=== PATIENT | male | born 1995 | race Two or more races ===

== ENCOUNTER 2025-03-21 20:53 | Inpatient (IN) | payer OTHER ==
[~2025-03-21] VITALS: Ht 175.3 cm; Wt 78.9 kg
[2025-03-22] MEDS ORDERED: MAG HYDROX/AL HYDROX/SIMETH 30 ML UDC PO PRN (01:00)
[2025-03-22] MEDS ORDERED: DOSING PER PHARMACY-VANCOMYCIN IV XX PRN (01:00)
[2025-03-22] MEDS ORDERED: ALBUTEROL FS 2.5 MG/3 ML VIAL.NEB NEB PRN (01:00)
[2025-03-22] MEDS ORDERED: IPRATROPIUM NEB FS 0.5 MG/2.5 ML AMPUL.NEB NEB PRN (01:00)
[2025-03-22] MEDS ORDERED: Z GUARD REMEDY 4 OZ OINT TP PRN (01:00)
[2025-03-22] MEDS ORDERED: ONDANSETRON HCL/PF 4 MG/2 ML VIAL IVP PRN (01:00)
[2025-03-22] MEDS ORDERED: HYDROCODONE/APAP 5/325MG TABLET GT PRN (01:30)
[2025-03-22] MEDS: POLYVINYL ALCOHOL 15 ML BOTTLE EACHEYE SCH (01:30)
[2025-03-22] MEDS ORDERED: ACETAMINOPHEN ES 500 MG TABLET GT PRN (01:30)
[2025-03-22 06:00] VITALS: BP 123/90; TEMP 92.9; O2SAT 98
[2025-03-22] MEDS ORDERED: VANCOMYCIN 1 GM /D5W 250 ML PB IV ONE (06:26)
[2025-03-22] MEDS ORDERED: MEROPENEM 500MG/NS 50 ML PB IV ONE (06:26)
[2025-03-22] MEDS: IV D5/ 0.9% NACL 1,000 ML IV PRN (06:33)
[2025-03-22] MEDS: MEROPENEM 500 MG in IV NS 0.9% 50 ML IV ONE (06:38)
[2025-03-22] MEDS: VANCOMYCIN 1.5 GM in IV D5W 500 ML IV ONE (06:55)
[2025-03-22] MEDS ORDERED: MAG HYDROX/AL HYDROX/SIMETH 30 ML UDC GT PRN (07:00)
[2025-03-22 08:00] VITALS: BP 123/90; TEMP 97.5; O2SAT 98
[2025-03-22] MEDS ORDERED: POLY17PO4 GT (08:33)
[2025-03-22] MEDS ORDERED: ENOX30DI5 SQ (08:33)
[2025-03-22] MEDS ORDERED: POTA20PA40 GT (08:33)
[2025-03-22] MEDS ORDERED: AMIN30LI66 GT (08:33)
[2025-03-22] MEDS ORDERED: CLON0.2T GT (08:33)
[2025-03-22] MEDS ORDERED: POLY15DR40 EACHEYE (08:33)
[2025-03-22] MEDS ORDERED: MIDO10TA GT (08:33)
[2025-03-22] MEDS ORDERED: BISA10SU11 RC (08:33)
[2025-03-22] MEDS ORDERED: CRAN300T GT (08:33)
[2025-03-22] MEDS ORDERED: ASCO500T10 GT (08:33)
[2025-03-22] MEDS ORDERED: MULT-213 GT (08:33)
[2025-03-22] MEDS ORDERED: LOSA25TA27 GT (08:33)
[2025-03-22] MEDS ORDERED: FAMO40OR5 GT (08:33)
[2025-03-22] MEDS ORDERED: FERR220E2 GT (08:33)
[2025-03-22] MEDS ORDERED: ACET-2070 GT (08:33)
[2025-03-22] MEDS ORDERED: MAGN400O6 GT (08:33)
[2025-03-22] MEDS ORDERED: FLUD0.1T GT (08:33)
[2025-03-22] MEDS ORDERED: ONDA-97 GT (08:33)
[2025-03-22] MEDS ORDERED: HYDR-4209 PO (08:33)
[2025-03-22] MEDS ORDERED: IPRA3AMP23 IH ×2 (08:33)
[2025-03-22] MEDS: PANTOPRAZOLE 40 MG VIAL IV SCH (09:14)
[2025-03-22] MEDS ORDERED: Medication Not On Formulary EA (Acetaminophen 20 ML) GT PRN (09:30)
[2025-03-22] MEDS ORDERED: Medication Not On Formulary EA (Ipratropium/Albuterol Sulfate (Duoneb 2.5-0.5 Mg/3 Ml So IH PRN (09:30)
[2025-03-22 09:38] LABS: RED BLOOD CELL COUNT(AUTO) 2.81 MIL/uL (4.5-6.0); RED CELL DISTRIBUTION WIDTH 20.3 % (11.5-15.0); WHITE BLOOD COUNT (AUTO) 3.5 K/uL (4.3-11.0)
[2025-03-22 09:54] LABS: PLATELET COUNT (AUTO) 112 K/uL (150-450)
[2025-03-22] MEDS ORDERED: MIDODRINE HCL (5MG) 5 MG TABLET GT PRN (10:00)
[2025-03-22 10:09] LABS: ASPARTATE AMINOTRANSFERASE 63.0 U/L (15-37); CALCIUM, SERUM 9.1 mg/dL (8.5-10.1); CREATININE 0.7 mg/dL (0.6-1.3); SODIUM SERUM 146.0 mmol/L (136-145); TOTAL PROTEIN, SERUM 8.2 g/dL (6.4-8.2); UREA NITROGEN, BLOOD 14.0 mg/dL (7-18)
[2025-03-22 10:25] VITALS: BP 105/76; O2SAT 98
[2025-03-22 12:00] VITALS: BP 108/70; TEMP 98.2; O2SAT 98
[2025-03-22] MEDS: MEROPENEM 500 MG in IV NS 0.9% 50 ML IV SCH (13:11)
[2025-03-22] MEDS: FLUDROCORTISONE 0.1 MG TABLET GT SCH (13:13)
[2025-03-22] MEDS: IPRATROPIUM NEB FS 0.5 MG/2.5 ML AMPUL.NEB NEB SCH (14:10)
[2025-03-22] MEDS: ALBUTEROL FS 2.5 MG/3 ML VIAL.NEB NEB SCH (14:10)
[2025-03-22] MEDS: VANCOMYCIN HCL 1.25 GM in IV D5W 250 ML IV SCH (15:14)
[2025-03-22 16:00] VITALS: BP 106/70; TEMP 98.7; O2SAT 96
[2025-03-22 16:06] LABS: APPEARANCE,URINE CLEAR (CLEAR); BLOOD, URINE TRACE-INTA Ery/uL (NEGATIVE); LEUKOCYTE ESTERASE ,URINE NEGATIVE (NEGATIVE); NITRITE, URINE NEGATIVE (NEGATIVE); UGLUCOSE NEGATIVE (NEGATIVE)
[2025-03-22 16:23] LABS: ADD URINE CULTURE YES; SQUAMOUS EPITHELIAL CELL,UR Few /HPF (None Seen)
[2025-03-22] MEDS: FAMOTIDINE (20 MG) 20 MG TABLET GT SCH (17:13)
[2025-03-22] MEDS: FERROUS SULFATE UDC 300 MG/5 ML UDC GT SCH (17:13)
[2025-03-22] MEDS: JEVITY 1.2 CAL 1,000 ML BOTTLE GT PRN (17:22)
[2025-03-22 20:00] VITALS: BP 109/74; TEMP 97.8; O2SAT 98
[2025-03-23] VITALS: BP 104/77; TEMP 97.3; O2SAT 97
[2025-03-23 04:00] VITALS: BP 110/73; TEMP 98.3; O2SAT 97
[2025-03-23 07:52] LABS: LDL 45.0 mg/dL (0-99)
[2025-03-23 08:00] VITALS: BP 101/71; TEMP 98.3; O2SAT 97
[2025-03-23 08:00] LABS: CALCIUM, SERUM 9.0 mg/dL (8.5-10.1); CREATININE 0.8 mg/dL (0.6-1.3); NT-PRO BNP 832.0 pg/mL (0-125); PHOSPHORUS 4.5 mg/dL (2.5-4.9); SODIUM SERUM 148.0 mmol/L (136-145); UREA NITROGEN, BLOOD 12.0 mg/dL (7-18)
[2025-03-23 08:03] LABS: PLATELET COUNT (AUTO) 135 K/uL (150-450); RED BLOOD CELL COUNT(AUTO) 2.75 MIL/uL (4.5-6.0); RED CELL DISTRIBUTION WIDTH 20.5 % (11.5-15.0); WHITE BLOOD COUNT (AUTO) 3.9 K/uL (4.3-11.0)
[2025-03-23] MEDS: LOSARTAN POTASSIUM 25 MG TABLET GT SCH (08:40)
[2025-03-23] MEDS: ASCORBIC ACID 500 MG TABLET GT SCH (08:40)
[2025-03-23] MEDS: PANTOPRAZOLE 40 MG/PACK PACK NG SCH (08:41)
[2025-03-23 12:00] VITALS: BP 119/80; TEMP 97.9; O2SAT 97
[2025-03-23 13:38] LABS: HIV-1/2 ANTIBODY NON REACTIVE (NONREACTIVE)
[2025-03-23 16:00] VITALS: BP 111/77; TEMP 97.5; O2SAT 97
[2025-03-23 20:00] VITALS: BP 110/89; TEMP 97.6; O2SAT 99
[2025-03-24] VITALS: BP 110/72; TEMP 97.6; O2SAT 97
[2025-03-24 04:00] VITALS: BP 100/67; TEMP 97.8; O2SAT 96
[2025-03-24 07:56] LABS: PLATELET COUNT (AUTO) 132 K/uL (150-450); RED BLOOD CELL COUNT(AUTO) 2.66 MIL/uL (4.5-6.0); RED CELL DISTRIBUTION WIDTH 19.7 % (11.5-15.0); WHITE BLOOD COUNT (AUTO) 6.5 K/uL (4.3-11.0)
[2025-03-24 08:00] VITALS: BP 101/77; TEMP 98.6; O2SAT 100
[2025-03-24 08:12] LABS: CALCIUM, SERUM 8.6 mg/dL (8.5-10.1); CREATININE 0.6 mg/dL (0.6-1.3); PHOSPHORUS 3.1 mg/dL (2.5-4.9); SODIUM SERUM 146.0 mmol/L (136-145); UREA NITROGEN, BLOOD 10.0 mg/dL (7-18)
[2025-03-24 12:00] VITALS: BP 111/80; TEMP 97.4; O2SAT 100
[2025-03-24 16:00] VITALS: BP 111/83; TEMP 98.6; O2SAT 100
[2025-03-24] MEDS ORDERED: VANCOMYCIN 750 MG in IV D5W 250 ML IV SCH (22:00)
== END 2025-03-25 | DRG 139 ==
LOC: TELE-TD 03-22 00:46 → TELE1 03-23 10:34
PROVIDERS: ADMIT Internal Medicine; ATTEND Internal Medicine
PROC: 5A1945Z Respiratory Ventilation, 24-96 Consecutive Hours (ICD-10-PCS; principal; 2025-03-22)
DX: J15.9 Unspecified bacterial pneumonia (principal); Z99.11 Dependence on respirator [ventilator] status; R53.2 Functional quadriplegia; D61.818 Other pancytopenia; J96.10 Chronic respiratory failure, unspecified whether with hypoxia or hypercapnia; Z93.0 Tracheostomy status; D63.8 Anemia in other chronic diseases classified elsewhere; R68.0 Hypothermia, not associated with low environmental temperature; Z93.1 Gastrostomy status; Z87.820 Personal history of traumatic brain injury; Z79.01 Long term (current) use of anticoagulants; Z79.51 Long term (current) use of inhaled steroids; Z79.899 Other long term (current) drug therapy; Z87.828 Personal history of other (healed) physical injury and trauma; Y95 Nosocomial condition; Z98.2 Presence of cerebrospinal fluid drainage device
CPT/HCPCS: 31720; 36415; 71045-TC; 80048-TC; 80053-TC; 80061-TC; 80202-TC; 81001; 83605-TC; 83735-TC; 83880; 84100-TC; 85025-TC; 86803; 87040-TC; 87081-TC; 87086-TC; 87806; 93307-TC; 94002-TC; 94003-TC; 94760-TC; 94762-TC; 94799-TC; A4223; A6213; A7526; G0378; J2185; J2470; J3373; J3374; J3490; J7042; J7050; J7060